=== PATIENT | female | born 1960 | race Caucasian/White ===

== ENCOUNTER → 2022-05-15 | Outpatient (CLI) | payer BC ==
[2022-05-15 13:46] LABS: INR 0.9 (<1.2); Partial Thromboplastin Time 24.5 sec (22.0-30.0); Prothrombin Time 9.7 sec (9.0-12.0)
[2022-05-15 18:21] LABS: Appearance,Urine Cloudy (Clear); Bilirubin,Urine Negative (Negative); Blood,Urine Negative (Negative); Color,Urine Yellow (Yellow); Ketones,Urine Negative (Negative); Nitrite,Urine Positive (Negative); PH, Urine 7.5 (5.0-8.0); Specific Gravity,Urine 1.013 (1.001-1.030)
[2022-05-15 19:05] LABS: Bacteria,Urine 4+ /HPF (None Seen)
[2022-05-15 19:10] LABS: HCT 39.7 % (37.2-46.3); HGB 12.9 g/dL (12.0-15.0); MCH 30.4 pg (27.0-32.0); MCHC 32.5 g/dL (32.0-37.0); MCV 93.4 fL (80.0-97.0); Mean Platelet Volume 10.8 fL (9.5-12.2); NRBC Per 100 WBC 0 /100 WBCS (0.0-0.0); Platelet Count 315 X 10*3/uL (140-440); RBC 4.25 X 10*6/uL (4.10-5.20)
[2022-05-15 19:25] LABS: ALT 22 U/L (8-44); AST 23 U/L (13-35); African American GFR (CKD) 109.6 (60.0-200.0); Albumin 4.4 g/dL (3.8-4.9); Albumin/Globulin Ratio 1.76 (1.60-3.17); Alkaline Phosphatase 107 U/L (41-126); BUN/Creat Ratio 11.95 Ratio (12.00-20.00); Blood Urea Nitrogen 8.3 mg/dL (9.0-27.0); Calcium 9.5 mg/dL (8.7-10.3); Carbon Dioxide 27.4 mmol/L (20.0-27.5); Chloride 105 mmol/L (96-109); Globulin 2.5 g/dL (1.6-3.3); Glucose 93 mg/dL (70-110); Non-African American GFR(CKD) 94.6 (60.0-200.0); Potassium 4.5 mmol/L (3.5-5.5); Sodium 142 mmol/L (135-145); Total Bilirubin <0.15 mg/dL (0.30-1.20); Total Protein 6.9 g/dL (6.2-8.2)
== END | disposition home or self-care (01) ==
LOC: LABPAT 11:49
PROVIDERS: ATTEND Orthopaedic Surgery
DX: Z01.812 Encounter for preprocedural laboratory examination (principal); Z01.818 Encounter for other preprocedural examination; M16.12 Unilateral primary osteoarthritis, left hip
CPT/HCPCS: 80053; 81001; 85027; 85610; 85730; 87070; 93005

== ENCOUNTER 2022-05-24 06:35 | Day surgery (SDC) | payer BC ==
[~2022-05-24 06:35] MED LIST: ACETAMINOPHEN TAB 500 MG TAB PO PRN; DEXAMETHASONE SOD PHOSPHATE 10 MG/ML 1 ML VIAL IV PRN; DEXAMETHASONE SOD PHOSPHATE 4 MG/ML 1 ML VIAL IV ONE; DOCUSATE 100 MG CAP PO PRN; FAMOTIDINE 20 MG/2 ML VIAL IVP PRN; KETOROLAC 15 MG/ML 1 ML VIAL IVP PRN; LIDOCAINE 1% (10MG/ML) FOR IV START INTRADERMA PRN; MIDAZOLAM 2 MG/2 ML VIAL IV PRN; ONDANSETRON 4 MG/2 ML VIAL IVP ONE; ONDANSETRON 4 MG/2 ML VIAL IVP PRN; ROPIVACAINE 246.25 MG, EPINEPHrine 0.5 MG, KETOROLAC (30 mg/mL) 30 MG, cloNIDine HCL/PF... MISCELLANE PRN; TRANEXAMIC ACID IN NACL,ISO-OS 1,000 MG in SALINE 1 100ML.BAG IVPB PRN; oxyCODONE ER 10 MG TAB.ER.12H PO PRN
[2022-05-24] MEDS: LACTATED RINGERS 1,000 ML IV SCH ×3 (07:17→23:06)
[2022-05-24] MEDS ORDERED: fentaNYL (PF) 50 MCG/ML 2 ML AMP IV ONE (07:41)
[2022-05-24] MEDS ORDERED: MIDAZOLAM 2 MG/2 ML VIAL IV ONE (07:41)
[2022-05-24] MEDS ORDERED: PROPOFOL 10 MG/ML 20 ML VIAL IV ONE (07:54)
[2022-05-24] MEDS ORDERED: SUCCINYLCHOLINE CHLORIDE 200 MG/10 ML VIAL IV ONE (07:54)
[2022-05-24] MEDS ORDERED: SODIUM CHLORIDE 0.9% (PF) 10 ML VIAL ONE (07:54)
[2022-05-24] MEDS ORDERED: LIDOCAINE 2% INJ 20 MG/ML (2 ML VIAL) ONE (07:54)
[2022-05-24] MEDS ORDERED: KETAMINE 10 MG/ML 20 ML VIAL ONE (07:54)
[2022-05-24] MEDS ORDERED: ROPIVACAINE 5 MG/ML 30 ML VIAL ONE (07:54)
[2022-05-24] MEDS ORDERED: fentaNYL (PF) 50 MCG/ML 2 ML AMP ONE (07:54)
[2022-05-24] MEDS ORDERED: GLYCOPYRROLATE 0.2 MG/ML 2 ML VIAL ONE (07:54)
[2022-05-24] MEDS ORDERED: NEOSTIGMINE 1 MG/ML 10 ML VIAL ONE (07:54)
[2022-05-24] MEDS ORDERED: ROCURONIUM 10 MG/ML (5 ML VIAL) IV ONE (07:54)
[2022-05-24] MEDS ORDERED: ePHEDrine 50 MG/ML 1 ML VIAL ONE (07:54)
[2022-05-24] MEDS ORDERED: MIDAZOLAM 2 MG/2 ML VIAL ONE (07:54)
[2022-05-24] MEDS ORDERED: TRANEXAMIC ACID IN NACL,ISO-OS 1,000 MG/100 ML BAG ONE (07:54)
[2022-05-24] MEDS ORDERED: LACTATED RINGERS 1,000 ML IV ONE (09:31)
--- NOTE | 2022-05-24 10:09 | XR ---
Fluoroscopy INDICATION: Pain FINDINGS: Fluoroscopy time: 36 seconds. Images obtained: 10. IMPRESSIONS: 1. Documentation of fluoroscopy.
--- NOTE | 2022-05-24 10:10 | FL ---
Intraoperative/procedural fluoroscopic services were provided. Total fluoroscopy time is 36 seconds w ith a total of 0 submitted images to PACS. Please see the operative/procedural note for further detai ls.
--- NOTE | 2022-05-24 10:13 | P.ANPRN ---
Procedure Note - Anesthesia - Nerve Block Performed Left Erector Spinae Time Out Performed: Yes (07:40) Date of Procedure: 05/24/22 Procedure Start Time: :40 Procedure Stop Time: :46 Location of Patient: PreOp Indication: Acute Post-Operative Pain, Requested by Surgeon (Dr Cuadra) Sedation Type: Sedate with meaningful contact maintained Preparation: Sterile Prep Position: Prone Catheter: None Needle Types: Pajunk Needle Gauge: 21 Ultrasound used to visualize needle placement: Yes Ultrasound used to observe medication spread: Yes Injectate: 0.5% Ropivacaine (see comment for volume) (15cc +10cc PF Normal saline) Blood Aspirated: No Pain Paresthesia on Injection Noted: No Resistance on Injection: Normal Image Stored and Saved: Yes Events: Uneventful and Well Tolerated
--- NOTE | 2022-05-24 10:14 | P.OP ---
Date of Procedure: 05/24/22 Preoperative Diagnosis: 1. 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 Prior lumbar spine fusion 3. Current every day cigarette smoker Postoperative Diagnosis: Same Procedure(s) Performed: Left direct anterior total hip arthroplasty Implants: 1. Shelby Trident II Acetabular Cup, Size #48 2. Shelby Insignia Size #3 Femoral Stem, Standard Offset 3. Dual Mobility OD 38 mm, ID 22.2 mm, +0 neck Anesthesia: GETA Surgeon: Ken Cuadra Childhood Teacher #1: Ellis Salter Estimated Blood Loss (ml): 200 IV fluids (ml): 1,200 Pathology: other (Left hip to pathology to rule out avascular necrosis per my request) Condition: stable Disposition: PACU Indications for Procedure: The patient is a very pleasant 61-year-old female with a long-standing history of left hip and back pain. He was initially seen by an outside orthopedic surgeon and then referred to me by her primary care physician to evaluate her for a possible total hip replacement. Her x-rays in the office showed arthritis and possible avascular necrosis. She had exquisite groin pain that was reproduced with passive range of motion of her hip. She also had a prior lumbar spine fusion and had some radicular type pain in her leg. We had a long discussion on the source of her pain including both the hip and the back. Based on my evaluation and the patient's presenting complaints I think the majority of her pain is from her hip but she understands the possibility of referred pain from her back. We also discussed her smoking status. The patient has severe incapacitating pain and states that she is willing to go forward with a hip replacement. I recommended smoking cessation but the patient said she is unable to quit. She understands the slightly elevated risk of complications due to her smoking. I strongly encouraged her to quit smoking during the perioperative period. I had a long discussion with the patient in the office on the potential risks and complications of an elective total hip replacement through a direct anterior approach. Risks discussed include, but are certainly not limited to, risks from anesthesia, superficial infection requiring local wound care or antibiotics, deep diana-prosthetic joint infection and the treatment required to eradicate infection, intraoperative fracture, postoperative periprosthetic fracture, damage to local blood vessels or nerves particularly the lateral femoral cutaneous nerve, delayed wound healing requiring local wound care or possibly surgical debridement, hip dislocation, leg length discrepancy, soft tissue irritation around the total hip implant such as iliopsoas tendinitis or trochanteric bursitis, wear and osteolysis from the implants, squeaking or audible noises, groin pain, thigh pain, heterotopic ossification, stiffness, aseptic loosening of the implants, dissatisfaction with surgical outcome, need for revision surgery, DVT, PE, swelling of the operative extremity, acute coronary event, stroke, failure to thrive, and possibly loss of life or limb. The patient understands that while these are the most common complications after an elective hip replacement there are certainly other less common complications possible. They were given ample time to ask questions regarding the potential complications of a hip replacement. Following our discussion the patient provided their verbal and written consent to go forward with an elective total hip replacement. Operative Findings: Severe arthritis with complete cartilage loss from the femoral head. There was a delaminated piece of cartilage within the acetabulum as a loose body. There was marked synovitis of the hip joint and a large effusion. Description of Procedure: The patient was identified in the preoperative holding area and the correct hip was marked with my initials. I reviewed the procedure and consent with the patient. All of their questions were answered. The patient was then brought back into the operating room by anesthesia. While on the [facility] anesthesia was administered by the anesthesia team. Preoperative antibiotics and tranexamic acid were also given. After the patient was under anesthesia I examined their ankles to determine their preoperative leg length discrepancy. The skin over the anterior aspect of the hip was shaved to remove hair over the site of planned incision. Both feet and ankles were padded with webril and boots for the [place] were applied. The patient was then carefully transferred onto the [place] table. A perineal post was immediately placed. The arms were placed on arm holders and were well-padded. Both boots were secured to the spars on the [place] table. The patient was positioned so that the pelvis was centered over the post. Nonsterile drapes were applied. A timeout was performed identifying the correct patient, operative extremity, and procedure. At this point fluoroscopy was brought in to take preoperative images of the pelvis and operative hip. Using the standing AP pelvis from the office as a template, a comparable image was obtained with fluoroscopy. A metallic bar was used to create a bi-ischial line for use as a reference to leg length adjustments during the procedure. Global offset was also measured on both the operative and nonoperative leg. Fluoroscopy was then brought out and a pre-scrub using a chlorhexidine scrub brush was performed. The operative limb was then prepped and draped in the standard sterile fashion. An anterior longitudinal incision was made lateral and distal to the ASIS. The skin and subcutaneous tissues were incised sharply. The underlying tensor fascia was identified and incised in its midportion. The fascia was dissected free from the underlying muscle and the muscle belly was retracted. A blunt tipped cobra retractor was placed over the superior neck under the muscle fibers of the gluteus minimus. The deep enveloping fascia of the tensor was incised. The anterior leash of vessels were then identified and cauterized. The fascia between the rectus and the capsule was then incised and the pre-capsular fat was excised. A second Cobra was placed inferior to the neck. The interval between the rectus and iliocapsularis and the hip capsule was developed and a retractor was placed carefully over the anterior rim of the acetabulum. A T-shaped anterior capsulotomy was performed. The superior capsular leaflet was left in place in the inferior capsular flap was excised. The Cobra retractors were placed intracapsularly. We then made a femoral neck osteotomy according to preoperative and intraoperative templating and confirmed the level of the osteotomy using fluoroscopic imaging. The femoral head was removed, passed off to the back table, and sized. The superior capsular flap was excised. Retractors were placed circumferentially exposing the acetabulum. We then circumferentially debrided the acetabulum free of labrum and osteophytes. The pulvinar was removed to fully visualize the cotyloid fossa. We then sequentially reamed to achieve peripheral fit and excellent bleeding subchondral bone. The socket was thoroughly irrigated. The acetabular component was i mpacted into the appropriate position using fluoroscopy to guide version, inclination, and depth of insertion taking care to have a comparable image of the AP pelvis to the standing image taken in the office. An excellent press-fit was achieved and final position was confirmed using fluoroscopy. The press fit was augmented with bony cancellus dome screws. The liner was then impacted into the socket. Attention was then turned to the femur. The remnant dorsal lateral capsule was excised. The short external rotators were visible and protected. A bone hook was used to confirm appropriate translation of the trochanter away from the acetabulum. The leg was then extended and adducted and the bone hook was used to elevate the femur for broaching. A box osteotome and blunt tipped canal kristian nd was then utilized to gain access to the femoral canal. We then sequentially broached the femur in appropriate anteversion until excellent torsional stability was achieved. The neck cut was brought flush to the trial broach with a calcar planar. A trial neck and head were then placed onto the broach and the hip was atraumatically reduced under direct visualization. External rotation to 90 was performed to assess stability. Fluoroscopy was brought in. An AP and lateral fluoroscopic image of the proximal femur was obtained to assess position and fill of the trial broach. An AP of the pelvis was then obtained and matched to the preoperative image taken. A bi-ischial bar was then placed and measurements were taken to assess changes in length and offset. The hip was then carefully dislocated, the proximal femur was exposed, and the trial implants were removed. The wound and proximal femur was thoroughly irrigated using sterile saline and pulsatile lavage. The final femoral implant was dispensed and gently tapped into place generating an excellent press-fit. The trunnion was cleansed and the final head was tapped into place to engage the Foster taper. The acetabulum was irrigated and visualized to be free of debris. The hip was carefully reduced. Stability was checked clinically with external rotation to 90 and there was no evidence of instability. Final fluoroscopic images were taken. The wound was then thoroughly irrigated and soaked with a dilute Betadine rinse for 3 minutes. 3 L of sterile saline was irrigated through the wound using pulsatile lavage. Local anesthetic cocktail was injected into the soft tissues around the surgical field. A deep drain was placed. The wound was then closed in layers. A sterile dressing was placed over the surgical incision and drain site. The drapes were taken down and the patient was carefully transferred off of the [place] table. Following removal of the boots the leg lengths felt acceptable. The patient was then taken to recovery room having tolerated the procedure well. Ellis Salter PA-C was required as a skilled wardrobe assistant for patient positioning, surgical exposure, retraction, placement of implants, and closure of the surgical wound. PLAN: The patient can weight-bear as tolerated on the operative extremity. 2 doses of postoperative antibiotics. DVT prophylaxis with aspirin 81 mg twice a day based on preoperative risk stratification. Physical therapy for gait training. Discontinue drain postoperative day #1 if output is less than 100 mL per shift.
[2022-05-24] MEDS ORDERED: ONDANSETRON 4 MG/2 ML VIAL IVP PRN (10:15)
[2022-05-24] MEDS ORDERED: HYDROmorphone 1 MG/ML 1 ML SYRINGE IVP PRN (10:15)
[2022-05-24] MEDS ORDERED: HYDROmorphone 0.5 MG/0.5 ML SYRINGE IVP PRN ×2 (10:15)
[2022-05-24] MEDS ORDERED: NALOXONE 0.4 MG/ML 1 ML VIAL IV PRN (10:15)
[2022-05-24] MEDS: HYDROmorphone 0.5 MG/0.5 ML SYRINGE IVP PRN ×2 (10:35→10:52)
[2022-05-24] MEDS: HYDROcodone/APAP 5-325MG 1 EACH TAB PO PRN ×2 (13:17→21:34)
[2022-05-24] MEDS ORDERED: SENNOSIDES-DOCUSATE SODIUM 1 EACH TAB PO SCH (21:00)
[2022-05-24] MEDS: ASPIRIN 81 MG PO SCH (21:35)
[2022-05-25 03:47] VITALS: RESP 16
[2022-05-25] MEDS: LACTATED RINGERS 1,000 ML IV SCH ×3 (07:01→10:24)
[2022-05-25] MEDS: HYDROcodone/APAP 5-325MG 1 EACH TAB PO PRN ×2 (07:08→12:11)
[2022-05-25] MEDS: ASPIRIN 81 MG PO SCH (07:09)
[2022-05-25 08:12] VITALS: BP 169/73; PULSE 74; TEMP 99.1
--- NOTE | 2022-05-25 08:13 | P.DS ---
Providers Expected date of discharge: 05/25/22 Attending physician: Ken Cuadra Consults: 05/24/22 10:15 Consult Physician Routine Consulting Provider: Stevan Alicia Reason/Comments: medical management Do you want consulting provider notified?: Yes Primary care physician: Stevan [facility]de [facility] Course: This is a 61-year-old female with known history of degenerative arthritis of the right hip. The patient presents for evaluation. After discussion and consideration patient elects to proceed with direct anterior right total hip arthroplasty. The patient is seen preoperatively by Dr. Alicia and cleared for surgery. Patient is admitted to [facility] on 05/24/22 for direct anterior right total hip arthroplasty. The procedures performed without complication or sequelae. The patient is doing well postoperatively. Labs and vital signs are stable on day of discharge. Patient is examined bedside this morning with Dr. Cuadra. She states the pain in her right hip is well-controlled. She is ambulating with a walker with minimal assistance. She overall feels well. On examination, the patient is sitting up in bed in no apparent distress. She is alert and oriented 3. On inspection of her right hip, there is a clean, dry, intact OpSite dressing in place with no bleeding or drainage through the dressing. There is mild swelling of the thigh, the thigh soft and compressible. Motor and sensory function is intact of the right lower extremity. Femoral nerve function intact. Right lower extremity were well perfused. Calf is soft and nontender. Patient is discharged to home with home health services in good condition, pending medical clearance. Please see med rec for accurate list of discharge medications. Patient was instructed to follow-up with Dr. Cuadra in the office in 2 weeks. Plan - Discharge Summary Discharge Rx Participant: No New Discharge Prescriptions: New Aspirin 81 mg PO BID 30 Days #60 tab Omeprazole 40 mg PO DAILY 30 Days #30 cap Docusate [Colace] 100 mg PO BID #60 capsule HYDROcodone/APAP 5-325MG [[place] 5-325] 1 - 2 tab PO Q6HR PRN 7 Days #32 tab PRN Reason: Pain Diclofenac Sodium [Voltaren] 75 mg PO BID 30 Days #60 tab No Action Ibuprofen [Motrin] 800 mg PO Q8H PRN PRN Reason: Pain Atorvastatin [Lipitor] 10 mg PO DAILY Discharge Medication List Atorvastatin [Lipitor] 10 mg PO DAILY 05/22/22 [History] Ibuprofen [Motrin] 800 mg PO Q8H PRN 05/22/22 [History] Aspirin 81 mg PO BID 30 Days #60 tab 05/25/22 [Rx] Diclofenac Sodium [Voltaren] 75 mg PO BID 30 Days #60 tab 05/25/22 [Rx] Docusate [Colace] 100 mg PO BID #60 capsule 05/25/22 [Rx] HYDROcodone/APAP 5-325MG [[place] 5-325] 1 - 2 tab PO Q6HR PRN 7 Days #32 tab 05/25/22 [Rx] Omeprazole 40 mg PO DAILY 30 Days #30 cap 05/25/22 [Rx] Follow up Appointment(s)/Referral(s): Ken Cuadra MD [Medical Doctor] - 2 Weeks Activity/Diet/Wound Care/Special Instructions: Weight bear to tolerance on operative hip with a walker. Keep operative dressing intact until follow-up appointment in the office. Call the office if dressing becomes saturated or falls off. May shower over dressing. Take pain medications as needed. Take aspirin 81mg BID x 4 weeks for blood clot prevention. Follow-up with Dr. Cuadra in the office in two weeks. Call the office with any questions or concerns, Discharge Disposition: HOME WITH HOME HEALTH SERVICES
[2022-05-25] MEDS ORDERED: ATORVASTATIN 10 MG TAB PO SCH (09:00)
[2022-05-25 10:36] LABS: Basophils # (A) 0.03 X 10*3/uL (0.00-0.10); Basophils % (A) 0.2 %; Eosinophils # (A) 0.01 X 10*3/uL (0.04-0.35); Eosinophils % (A) 0.1 %; HGB 10.3 g/dL (12.0-15.0); Immature Grans, Automated 0.4 %; Lymphocytes # (A) 2.26 X 10*3/uL (0.90-5.00); Lymphocytes % (A) 14.2 %; MCH 30.7 pg (27.0-32.0); MCHC 32.2 g/dL (32.0-37.0); MCV 95.5 fL (80.0-97.0); Mean Platelet Volume 11.4 fL (9.5-12.2); Monocytes # (A) 1.25 X 10*3/uL (0.20-1.00); Monocytes % (A) 7.9 %; NRBC Per 100 WBC 0 /100 WBCS (0.0-0.0); Neutrophils # (A) 12.27 X 10*3/uL (1.80-7.70); Neutrophils % (A) 77.2 %; Platelet Count 297 X 10*3/uL (140-440); RBC 3.35 X 10*6/uL (4.10-5.20); RDW 14.4 % (11.5-14.5); WBC 15.89 X 10*3/uL (4.50-10.00)
--- NOTE | 2022-05-25 11:56 | P.CONS ---
History of Present Illness - Reason for Consult Consult date: 05/24/22 Medical management Requesting physician: Ken Cuadra - Chief Complaint Hips pain - History of Present Illness This is a pleasant 61-year-old patient of Dr. Nogueira. Chronic stable medical conditions include osteoarthritis, hyperlipidemia, nicotine dependence. Patient underwent left total hip arthroplasty. Able to get to the bathroom with a walker. Significant pain at the operative site. No nausea vomiting. Did tolerate her breakfast. Eating is stable. No chest pain. No dizziness or lightheadedness. Sitting at the edge of the bed. Keen to go home today. Review of systems: GEN.: None EYES: None HEENT: None NECK: None RESPIRATORY: None CARDIOVASCULAR: None GASTROINTESTINAL: None GENITOURINARY: None MUSCULOSKELETAL: Joint pains LYMPHATICS: None HEMATOLOGICAL: None PSYCHIATRY: None NEUROLOGICAL: None Past medical history to include: Osteoarthritis, hyperlipidemia, nicotine dependence Social history: . No alcohol. Smokes a pack a day for close to 40 years Physical examination: VITAL SIGNS: 99.1, 74, 16, 169.73, 96% room air. Blood pressure previously 135/70. GENERAL: BMI 29.8, sitting of the edge of the bed, awake, I discomfort EYES: Pupils equal. Conjunctiva normal. HEENT: External appearance of nose and ears normal, oral cavity grossly normal. NECK: JVD not raised; masses not palpable. HEART: First and second heart sounds are normal; no edema. LUNGS: Respiratory rate normal; clear to auscultation. ABDOMEN: Soft, nontender, liver spleen not palpable, no masses palpable. PSYCH: [Alert and oriented x3; mood and affect slightly anxiety MUSCULOSKELETAL:No Clubbing/cyanosis;muscles-grossly intact, evidence of OA. Dressing over the left hip incision site NEUROLOGICAL: Cranial nerves grossly intact; no facial asymmetry, power and sensation grossly intact. LYMPHATICS: No lymph nodes palpable in the axilla and neck INVESTIGATIONS, reviewed in the clinical context: WBC 15.8 hemoglobin 10.3 platelets 297 Previous labs: Hemoglobin 12.9 on May 15 Assessment and plan: -Left total hip arthroplasty Aspirin for DVT prophylaxis, pain control -Primary osteoarthritis Pain control -Hyperlipidemia Lipitor -Chronic nicotine dependence, cigarette smoker Advised against smoking. Nicotine patch. -Acute postprocedure anemia as expected from surgery Add ferrous sulfate Add ferrous sulfate. Nicotine patch. Resume home medications. Care was discussed with the patient. Questions answered. If discharged to follow-up with her PCP. Thank you Dr. Cuadra -Leukocytosis likely reactive from surgery. No clinical evidence of infection. Past Medical History Past Medical History: Hyperlipidemia Additional Past Medical History / Comment(s): left hip pain, arthritis hips, hands. back and shoulders. History of Any Multi-Drug Resistant Organisms: None Reported Past Surgical History: Appendectomy, Tonsillectomy Additional Past Surgical History / Comment(s): back surgery with a cage. rt carpal tunnel repair. ablation Past Anesthesia/Blood Transfusion Reactions: No Reported Reaction Additional Past Anesthesia/Blood Transfusion Reaction / Comm: no blood transfusion hx Smoking Status: Current every day smoker - Past Family History Mother Additional Family Medical History / Comment(s): abdominal surgery with mesh Father Family Medical History: Coronary Artery Disease (CAD) Additional Family Medical History / Comment(s): gout Sister(s) Family Medical History: Deep Vein Thrombosis (DVT) Medications and Allergies Home Medications Medication Instructions Recorded Confirmed Type Atorvastatin [Lipitor] 10 mg PO DAILY 05/22/22 05/24/22 History Aspirin 81 mg PO BID 30 Days #60 tab 05/25/22 Rx Diclofenac Sodium [Voltaren] 75 mg PO BID 30 Days #60 tab 05/25/22 Rx Docusate [Colace] 100 mg PO BID #60 capsule 05/25/22 Rx HYDROcodone/APAP 5-325MG [[place] 1 - 2 tab PO Q6HR PRN 7 Days #32 05/25/22 Rx 5-325] tab Omeprazole 40 mg PO DAILY 30 Days #30 cap 05/25/22 Rx Allergies Allergy/AdvReac Type Severity Reaction Status Date / Time No Known Allergies Allergy Verified 05/24/22 06:57 Physical Exam Vitals: Vital Signs Temp Pulse Pulse Resp BP Pulse Ox 05/24/22 14:00 97.6 F 68 14 120/67 94 L 05/24/22 11:10 77 16 134/59 96 05/24/22 10:53 74 16 148/67 95 05/24/22 10:40 68 16 153/58 93 L 05/24/22 10:25 70 16 139/57 99 05/24/22 10:12 97.8 F 90 16 149/70 98 05/24/22 07:45 64 16 167/74 99 05/24/22 07:09 97.4 F L 54 L 16 175/74 100 Intake and Output 05/24/22 05/24/22 05/24/22 06:59 14:59 22:59 Intake Total 1600 Output Total 200 Balance 1400 Intake: IV 1600 Output: Estimated Blood Loss 200 Other: Weight 74 kg Results CBC & Chem 7: 05/25/22 07:06
[2022-05-25] MEDS ORDERED: NICOTINE 21MG/24HR PATCH TRANSDERM SCH (12:00)
== END 2022-05-25 13:24 | disposition home health service (06) ==
LOC: OR 06:35 → 4SSUR 10:12 → OR 05-25 13:24
PROVIDERS: ATTEND Orthopaedic Surgery
DX: M16.12 Unilateral primary osteoarthritis, left hip (principal); G89.18 Other acute postprocedural pain; I10 Essential (primary) hypertension; E78.5 Hyperlipidemia, unspecified; F17.210 Nicotine dependence, cigarettes, uncomplicated; D64.9 Anemia, unspecified; D72.829 Elevated white blood cell count, unspecified; Z79.1 Long term (current) use of non-steroidal anti-inflammatories (NSAID); Z79.82 Long term (current) use of aspirin; Z82.49 Family history of ischemic heart disease and other diseases of the circulatory system; Z96.1 Presence of intraocular lens
CPT/HCPCS: 97161; 64999; 86900; 86901; 85025; 86850; 88300; 73501; 27130; C1776; J2250; J0171; J1100; J0690; J2405; J3010; J1885 ×2; J2795; J0735; J1170

== ENCOUNTER → 2022-12-08 | Outpatient (CLI) | payer BC ==
--- NOTE | 2022-12-08 17:27 | MR ---
EXAMINATION TYPE: MR lumbar spine wo/w con DATE OF EXAM: 12/08/2022 5:11 PM COMPARISON: NONE HISTORY: Low back pain that radiates down both legs, mostly left. CONTRAST: The patient was injected with 7 mL intravenous Gadavist gadolinium contrast. Multiplanar, MultiSpin echo imaging of the lumbar spine was performed. L1-L2: Normal disc appearance without desiccation. No herniation, protrusion or disc bulging. No ca nal stenosis is present. Foramina are patent bilaterally. L2-L3: Mild decreased signal ossified compatible degenerative disc disease. Mild posterior disc bulge without evidence of herniation, protrusion or central stenosis. Foramina are patent bilaterally. L3-L4: Mild decreased signal ossified compatible degenerative disc disease. Posterior disc bulge with effacement of the ventral thecal sac. There is constriction of the thecal sac with borderline to mil d central stenosis. There may be bilateral lateral recess stenosis. Mild bilateral foraminal encroach ment left greater than right. L4-L5: Moderate disc desiccation. Grade 1 anterolisthesis of L4 and L5 measuring 4.5 mm. There is sev ere facet joint arthropathy without spondylolysis. There is constriction of the thecal sac at this le josey with moderate central stenosis. Hypertrophy ligamentum flavum seen. L5-S1: Postoperative changes of decompressive laminectomy. Pedicular screws and intervertebral body s pacer are in place. Alignment is near-anatomic. No evidence for recurrent or residual disease. No pat hologic enhancement identified. Lumbar segments are intact. No paraspinal masses are identified. Conus medullaris has a normal cassie earance. No pathologic enhancement seen. IMPRESSION: 1. Multilevel degenerative disc disease. 2. Borderline to mild central stenosis at L3-4 as outlined above. 3. Grade 1 anterolisthesis L4 and L5 with distortion of the thecal sac and eyja-ta-seuhblyu central s tenosis. 4. Postoperative change at L5-S1 with normal postoperative alignment and no evidence for recurrent di sease.
== END | disposition home or self-care (01) ==
LOC: RADMRIMAIN 16:15
PROVIDERS: ATTEND Orthopaedic Surgery Orthopaedic Surgery of the Spine
DX: M43.16 Spondylolisthesis, lumbar region (principal); M47.26 Other spondylosis with radiculopathy, lumbar region; M51.16 Intervertebral disc disorders with radiculopathy, lumbar region; M99.73 Connective tissue and disc stenosis of intervertebral foramina of lumbar region
CPT/HCPCS: 72158; A9585

== ENCOUNTER → 2023-12-03 | Outpatient (CLI) | payer BC ==
--- NOTE | 2023-12-03 12:58 | XR ---
EXAMINATION TYPE: XR chest 2V DATE OF EXAM: 12/03/2023 COMPARISON: None HISTORY: 62-year-old female Z01.818 preoperative for spine surgery TECHNIQUE: Frontal and lateral FINDINGS: Heart mildly enlarged. Mild hyperinflation. Aorta and pulmonary vasculature are within normal limits. No consolidation or pleural effusion. IMPRESSION: Mild cardiomegaly. Hyperinflation may relate to depth of inspiration or underlying emphysema. Clinica lly correlate. No acute process seen.
[2023-12-03 13:13] LABS: INR 0.9 (<1.2); Partial Thromboplastin Time 25.2 sec (22.0-30.0); Prothrombin Time 10.3 sec (10.0-12.5)
[2023-12-03 15:43] LABS: Basophils # (A) 0.06 X 10*3/uL (0.00-0.10); Basophils % (A) 0.7 %; Eosinophils # (A) 0.24 X 10*3/uL (0.04-0.35); Eosinophils % (A) 2.7 %; HCT 41.4 % (37.2-46.3); HGB 13.3 g/dL (12.0-15.0); Lymphocytes # (A) 2.55 X 10*3/uL (0.90-5.00); Lymphocytes % (A) 28.4 %; MCH 30.8 pg (27.0-32.0); MCHC 32.1 g/dL (32.0-37.0); MCV 95.8 FL (80.0-97.0); Mean Platelet Volume 11.2 FL (9.5-12.2); Monocytes % (A) 5.6 %; NRBC Per 100 WBC 0 X 10*3/uL (0.00-0.01); Neutrophils % (A) 62.4 %; Platelet Count 324 X 10*3/uL (140-440); RBC 4.32 X 10*6/uL (4.10-5.20); RDW 13.4 % (11.5-14.5); WBC 8.97 X 10*3/uL (4.50-10.00)
[2023-12-03 16:00] LABS: BUN/Creat Ratio 12.71 Ratio (12.00-20.00); Blood Urea Nitrogen 8.9 mg/dL (9.0-27.0); Calcium 9.5 mg/dL (8.7-10.3); Carbon Dioxide 26.1 mmol/L (21.6-31.8); Chloride 105 mmol/L (96-109); Glucose 110 mg/dL (70-110); Potassium 4.4 mmol/L (3.5-5.5); Sodium 143 mmol/L (135-145)
[2023-12-03 17:31] LABS: Appearance,Urine Clear (Clear); Bilirubin,Urine Negative (Negative); Blood,Urine Negative (Negative); Color,Urine Yellow (Yellow); Ketones,Urine Negative (Negative); Nitrite,Urine Negative (Negative); Specific Gravity,Urine 1.006 (1.001-1.030); Urobilinogen,Urine 0.2 E.U./DL
[2023-12-03 17:43] LABS: Bacteria,Urine None Seen (None Seen)
== END | disposition home or self-care (01) ==
LOC: LABPAT 11:25
PROVIDERS: ATTEND Orthopaedic Surgery Orthopaedic Surgery of the Spine
DX: Z01.818 Encounter for other preprocedural examination (principal); Z22.322 Carrier or suspected carrier of Methicillin resistant Staphylococcus aureus; I51.7 Cardiomegaly; J98.4 Other disorders of lung
CPT/HCPCS: 71046; 80048; 81001; 85025; 85610; 85730; 86850; 86900; 86901; 87070; 93005

== ENCOUNTER 2023-12-12 10:05 | Observation (INO) | payer BC ==
[2023-12-07 15:02] VITALS: BMI 28.3
[~2023-12-12 10:05] MED LIST changes: -ACETAMINOPHEN TAB 500 MG TAB PO PRN; -DEXAMETHASONE SOD PHOSPHATE 10 MG/ML 1 ML VIAL IV PRN; -DEXAMETHASONE SOD PHOSPHATE 4 MG/ML 1 ML VIAL IV ONE; -DOCUSATE 100 MG CAP PO PRN; -FAMOTIDINE 20 MG/2 ML VIAL IVP PRN; +HYDROmorphone 0.5 MG/0.5 ML SYRINGE IVP PRN; -KETOROLAC 15 MG/ML 1 ML VIAL IVP PRN; -MIDAZOLAM 2 MG/2 ML VIAL IV PRN; -ONDANSETRON 4 MG/2 ML VIAL IVP ONE; -ONDANSETRON 4 MG/2 ML VIAL IVP PRN; -ROPIVACAINE 246.25 MG, EPINEPHrine 0.5 MG, KETOROLAC (30 mg/mL) 30 MG, cloNIDine HCL/PF... MISCELLANE PRN; -TRANEXAMIC ACID IN NACL,ISO-OS 1,000 MG in SALINE 1 100ML.BAG IVPB PRN; +ceFAZolin 1,000 MG in SODIUM CHLORIDE 0.9% IRRIGATIO 1,000 ML IRRIGATION PRN; -oxyCODONE ER 10 MG TAB.ER.12H PO PRN
[2023-12-12] MEDS: LACTATED RINGERS 1,000 ML IV SCH (10:33)
[2023-12-12] MEDS: ONDANSETRON 4 MG/2 ML VIAL IVP ONE (10:46)
[2023-12-12] MEDS ORDERED: ROCURONIUM 10 MG/ML (5 ML VIAL) IV ONE (12:35)
[2023-12-12] MEDS ORDERED: TRANEXAMIC 1,000 MG/100ML-NACL PREMIX BAG ONE (12:35)
[2023-12-12] MEDS ORDERED: LIDOCAINE 1% INJ 10MG/ML (20 ML MDV) ONE (12:35)
[2023-12-12] MEDS ORDERED: KETAMINE HCL IN 0.9 % NACL 50 MG/5 ML SYRINGE ONE (12:35)
[2023-12-12] MEDS ORDERED: PROPOFOL 10 MG/ML 20 ML VIAL IV ONE (12:35)
[2023-12-12] MEDS ORDERED: HYDROmorphone (PF) 1 MG/ML ONE (12:35)
[2023-12-12] MEDS ORDERED: fentaNYL (PF) 50 MCG/ML 2 ML AMP ONE (12:35)
[2023-12-12] MEDS ORDERED: NEOSTIGMINE 1 MG/ML 10 ML VIAL ONE (12:35)
[2023-12-12] MEDS ORDERED: MIDAZOLAM 2 MG/2 ML VIAL ONE (12:35)
[2023-12-12] MEDS ORDERED: GLYCOPYRROLATE 0.2 MG/ML 2 ML VIAL ONE (12:35)
[2023-12-12] MEDS ORDERED: PHENYLEPHRINE-0.9% NACL SYG 1,000 MCG/10 ML SYRINGE ONE (12:35)
[2023-12-12] MEDS ORDERED: SUCCINYLCHOLINE CHLORIDE 200 MG/10 ML VIAL IV ONE (12:35)
[2023-12-12] MEDS: ceFAZolin 1,000 MG in SODIUM CHLORIDE 0.9% IRRIGATIO 1,000 ML IRRIGATION PRN (12:40)
[2023-12-12] MEDS: LIDOCAINE 2% INJ 20 MG/ML SQ ONE ×2 (13:01→13:11)
[2023-12-12] MEDS: BUPIVACAINE (PF) 0.25% 30 ML VIAL SQ ONE ×2 (13:01→13:11)
[2023-12-12] MEDS: THROMBIN (BOVINE) 5,000 UNIT VIAL MISCELLANE ONE (13:11)
[2023-12-12] MEDS: LACTATED RINGERS 1,000 ML IV ONE (14:36)
[2023-12-12] MEDS ORDERED: BENZOCAINE/MENTHOL LOZENG 1 EACH LOZENGE MUCOUS MEM PRN (16:26)
[2023-12-12] MEDS ORDERED: HYDROmorphone 1 MG/ML 1 ML SYRINGE IVP PRN (16:26)
[2023-12-12] MEDS ORDERED: bisacodyL 10 MG SUPP RECTAL PRN (16:27)
[2023-12-12] MEDS ORDERED: ONDANSETRON 4 MG/2 ML VIAL IVP PRN (16:27)
[2023-12-12] MEDS ORDERED: ACETAMINOPHEN TAB 325 MG TAB PO PRN (16:27)
[2023-12-12] MEDS ORDERED: traMADol 50 MG TAB PO PRN (16:30)
[2023-12-12] MEDS: HYDROmorphone 0.5 MG/0.5 ML SYRINGE IVP ONE ×3 (16:50→17:37)
--- NOTE | 2023-12-12 16:50 | P.OP ---
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, history of prior decompression fusion L5-S1, fracture hardware S1, retained hardware at L5-S1, lower extremity radiculopathy Postoperative Diagnosis: Same with findings of solid fusion at L5-S1 Procedure: Removal of deep hardware L5-S1, explorration and evaluation of fusion L5-S1 with findings of solid fusion, laminectomy decompression with wide bilateral foraminotomies and partial facetectomy L4-5, discectomy for decompression L4-5 beyond the scope of discectomy for fusion, Posterior lateral decompression and fusion L4-5 Transforaminal lumbar interbody fusion L4-5 for 360 degree fusion Use of CT guidance navigation intraoperatively for placement of hardware and image evaluation Surgeon: Dr. Coombs Pen Or Pencil Assembly Machine Operator: Cj CROSS who is present throughout the entire the case persistence during positioning, dissection, exposure, visualization, and all crucial elements of the case as well as closure. Anesthesia: General anesthesia Estimated blood loss: Approximately 150 cc Complications: None apparent Components implanted: [place] K2 M [place] cannulated pedicle screw system with 6.5 x 45 mm screws and a [place] interbody cage with rods and DBX bone strips to supplement local autogenous bone graft and bone marrow aspirate. We removed screws L5 and S1 vertebrae. The screws from L5 were evaluated and found to be in total. The rods were in total. The left S1 screw was in total. The right S1 screw that was removed had been fractured chronically. We did not remove the fracture fragment within S1 vertebrae. Disposition: To recovery room in good stable condition. OPERATIVE INDICATIONS OPERATIVE SUMMARY The patient is a very pleasant 62-year-old female who has been having worsening pain in her low back over the past year. She been having worsening symptoms over the past several months and was found to have severe stenosis with spondylolisthesis and dynamic instability at L4-5. She had had a prior decompression and fusion at L5-S1. It appeared to be solid with screws intact at L4 but one of the screws at S1 had been fractured. We discussed various treatment options. She had been through extensive conservative treatment however it failed conservative management and exhausted conservative care. We discussed possibly of surgical intervention to remove the old hardware and extend the fusion to the new listhesis at L4-5 with severe stenosis at that level. After discussing all the risks, patient alternatives and benefits at length, the patient elected to proceed with surgical intervention, signed informed consent, and presented for their procedure. The patient was seen and examined in the preoperative holding area and the surgical site was marked. The patient was given antibiotics and brought to the operating room. The patient was sedated and intubated by anesthesia in standard fashion. The patient was positioned on to the operating room table in a prone position on the appropriate frame which was well-padded and well molded. We were careful to pad any bony prominences and pressure points. We were careful to maintain the patient's cervical spine and good neutral alignment and position throughout. The patient was prepped and draped in a normal standard fashion. An appropriate timeout and keystone protocol performed. We were able to proceed with the surgery. The local wound area was infiltrated with local anesthetic. An incision was made at the midline longitudinally over the appropriate levels utilizing the prior incision site and extending however L4-S1. Dissection was taken down subcutaneously to the level of the fascia which was split midline. Dissection was taken over the lamina bilaterally over the facet joints at L4-5 and over the hardware from L4-S1 and to the transverse processes. There is significant bone formation particularly on the right side at L5-S1. It was bridging bone from facet joint facet joint over the transverse processes. There is no evidence of any motion at the area. I was easily able to identify the screw heads. We began to remove the hardware at L5 and S1. The S1 screw on the right was fractured and we left the remnant within the vertebral body and S1 as it was not prominent. All the other screws removed and evaluated and found to be in total. The johnny was checked and found to be in total. The pedicle holes were palpated at L5 and found to have good for ferguson and a good base. There was no evidence of motion on evaluation at the fusion of L5-S1. I was able to expose over the spinous process of L3 and L4. An intraoperative stoker erector for the CT navigation device was placed over the spinous process and mounted in place with good stability. Intraoperative x-ray was taken which showed a marker at the appropriate level. With the stoker erector intact we are then able to drape appropriately and then bring in the [employer] navigation system for the appropriate intraoperative spin for the CT navigation. The spin was completed and we are able to evaluate well the space from L4-S1. The hardware has been removed appropriately at L5 and S1. With the appropriate level positively confirmed, we were able to proceed with placement of the pedicle holes and screws at L4 with plans of utilizing the established holes at L5. The patient had all their twitches back. The wound was copiously irrigated and suctioned dry as had been done periodically throughout the case. Using the CT navigation system intraoperatively I was able to use the Jamshidi to establish starting hole and establish the hole at the pedicle bilaterally at L4. It was malleted in place and checked. A wire was placed into the vertebral body and the Jamshidi was able to removed. Wires were placed at the L5 pedicle screw holes as well. Intraoperative imaging showed good alignment and position of the wires and we are all to place screws at L4 bilaterally 6.5 x 45 mm in length in good alignment good position with excellent bony purchase. The screw holes at L5 were tapped with a 6 5 tap and new screw was placed bilaterally with good alignment good position excellent bony purchase at L5 as well. When the screws were inserted there were stimulated, and found to have no stimulation at 20 mA. I was able to turn my attention to the decompression. There is significant scar tissue formation over the area and meticulous dissection was taken at the L4-5 space. The facets were severely arthritic and large spurs had formed. I was able to get decompression with full facetectomy on the left side and wide foraminotomy and partial facetectomy on the right side. Decompression was performed with a combination of rongeurs, curettes, Kerrison rongeurs and a ball-tip feeler. All of the bone that was removed was stripped and morcellized for use as autogenous bone graft later in the case. I was able to obtain good central decompression as well as wide bilateral foraminal decompression. There is no evidence of dural tear or leak. Good hemostasis was maintained. The wound was irrigated and suctioned dry. I performed a complete facetectomy at the appropriate level on the most symptomatic side on the left. All bone that was removed was saved for local autogenous bone grafting. I was able to gain access to the disc space at the appropriate level/levels. Good hemostasis was maintained. I was able to protect the neurologic structures. A discectomy was performed. This provided further decompression. I was also able to perform complete discectomy and endplate preparation with a combination of pituitary curettes, rasps and scrapers. With the interbody space prepared, I was able to do appropriate sizing. The appropriate size cage was chosen. The wound was irrigated and suctioned dry. The interbody space was packed with local autogenous bone graft and a small portion of bone graft substitute, as was the cage itself. Protecting the soft tissue structures, I was able place the cage in good alignment and good position with good fit and fill. There is no evidence of extrusion of the graft material nor protrusion of the interbody device. The wound was irrigated and suctioned dry. With the hardware intact, intraoperative x-ray was again taken which showed good alignment and position of the hardware at the appropriate levels. We were then able to measure, contour and place the rods and appropriate hardware bilaterally. I was able to obtain some reduction of the listhesis with placement of the rods at L4-5. I was able to place capcrews, tighten them down, and torque them off appropriately. The sheared portion was counted and accounted for. With this intact I was able to place the local autogenous bone graft with additional bone graft enhancer as necessary into the posterior lateral gutters bilaterally. With the bone graft intact, a stable construct, and good decompression at the appropriate levels, we were able to proceed with closure. Good hemostasis was maintained. There is no evidence of dural tear or leak. The fascia was closed for a watertight closure. The subcutaneous tissue was closed over a superficial drain. The subcuticular tissue was closed with absorbable suture. The wound was cleaned and dried and dressed with the appropriate dressing. The drapes were broken down. The patient was gently rolled back onto their hospital bed being careful to maintain their cervical spine and good neutral alignment and position. They were woken up by anesthesia, extubated, and brought to the recovery room in good stable condition. The patient will be admitted to the hospital for appropriate postoperative care, medical management and monitoring. We will continue to follow them closely about the postoperative course.
[2023-12-12] MEDS: SODIUM CHLORIDE 0.9% 1,000 ML IV SCH (18:39)
[2023-12-12] MEDS: HYDROmorphone 0.5 MG/0.5 ML SYRINGE IVP PRN (21:45)
--- NOTE | 2023-12-12 22:00 | P.CONS ---
History of Present Illness - Reason for Consult Consult date: 12/12/23 Medical management Requesting physician: Palu Coombs - Chief Complaint Lumbar surgery - History of Present Illness This is a pleasant 62-year-old patient of Dr. Alicia. Chronic stable medical conditions include osteoarthritis, hyperlipidemia, nicotine dependence. Patient has had longstanding lower back problems. Now radiating down to the left leg. With some numbness. At baseline patient does walk with a limp. Patient underwent lumbar surgery by Dr. Coombs. Postprocedure laying in bed. Some pain present. Chronic stable medical conditions include hard of hearing, tinnitus, hyperlipidemia. Patient does have chronic congestion from allergies. Smoker. Review of systems: GEN.: Tired EYES: None HEENT: Near congestion e NECK: None RESPIRATORY: Intermittent cough CARDIOVASCULAR: None GASTROINTESTINAL: None GENITOURINARY: None MUSCULOSKELETAL: Joint pains LYMPHATICS: None HEMATOLOGICAL: None PSYCHIATRY: None NEUROLOGICAL: None Past medical history to include: Osteoarthritis, hyperlipidemia, nicotine dependence Social history: . No alcohol. Smokes a pack a day for 44 years Physical examination: VITAL SIGNS: 99, 59, 14, 151/72, 97% 2 L GENERAL: BMI 27.7. Laying in bed awake not in distress EYES: Pupils equal. Conjunctiva normal. HEENT: External appearance of nose and ears normal, oral cavity grossly normal. Decreased hearing NECK: JVD not raised; masses not palpable. HEART: First and second heart sounds are normal; no edema. LUNGS: Respiratory rate normal; decreased breath sounds. ABDOMEN: Soft, nontender, liver spleen not palpable, no masses palpable. PSYCH: [Alert and oriented x3; mood and affect slightly anxiety MUSCULOSKELETAL:No Clubbing/cyanosis;muscles-grossly intact, evidence of OA. Dressing over incision site NEUROLOGICAL: Cranial nerves grossly intact; no facial asymmetry, power and sensation grossly intact. LYMPHATICS: No lymph nodes palpable in the axilla and neck INVESTIGATIONS, reviewed in the clinical context: December 03, 2023: White count 8.9 hemoglobin 13.3 platelets 324 sodium 143 potassium 4.4 creatinine 0.7 EKG tracing personally reviewed by me-December 03, 2023: Normal sinus rhythm. Chest x-ray film personally reviewed by me-hyperinflation. Mild cardiomegaly. 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 Including laminectomy decompression, facetectomy, discectomy,. By Dr. Paul Coombs. Pain control -Primary osteoarthritis Pain control -Hyperlipidemia Lipitor -Chronic nicotine dependence, cigarette smoker Nicotine patch. -Emphysema secondary to smoking Albuterol as needed Care was discussed with the patient. Questions answered. Thank you Dr. Coombs Past Medical History Past Medical History: Hearing Disorder / Deafness, Hyperlipidemia Additional Past Medical History / Comment(s): left hip pain, arthritis hips, hands. back and shoulders. Tinnitis History of Any Multi-Drug Resistant Organisms: None Reported Past Surgical History: Appendectomy, Tonsillectomy Additional Past Surgical History / Comment(s): back surgery with a cage. rt carpal tunnel repair. Uterine ablation. Past Anesthesia/Blood Transfusion Reactions: No Reported Reaction Additional Past Anesthesia/Blood Transfusion Reaction / Comm: no blood transfusion hx Past Psychological History: No Psychological Hx Reported Smoking Status: Current every day smoker Past Alcohol Use History: None Reported Additional Past Alcohol Use History / Comment(s): 1 ppd since 18yrs old. Past Drug Use History: None Reported, Marijuana Additional Drug Use History / Comment(s): Smoke Marijuna "once and awahile." Instructed no Marijuana use 24 hours before procedure. - Past Family History Mother Additional Family Medical History / Comment(s): abdominal surgery with mesh Father Family Medical History: Coronary Artery Disease (CAD) Additional Family Medical History / Comment(s): gout Sister(s) Family Medical History: Cancer, Deep Vein Thrombosis (DVT) Additional Family Medical History / Comment(s): breast cancer Medications and Allergies Home Medications Medication Instructions Recorded Confirmed Type Atorvastatin [Lipitor] 20 mg PO QAM 05/22/22 12/12/23 History Ibuprophen (Unknown Dose) 1 dose PO Q8H PRN 12/07/23 12/12/23 History traMADol HCL 50 mg PO TID PRN 12/07/23 12/12/23 History Allergies Allergy/AdvReac Type Severity Reaction Status Date / Time No Known Allergies Allergy Verified 12/12/23 10:29 Physical Exam Vitals: Vital Signs Temp Pulse Pulse Resp BP BP Pulse Ox 12/12/23 19:34 99.0 F 59 L 14 151/72 97 12/12/23 18:59 66 16 12/12/23 18:28 97.8 F 66 16 179/79 92 L 12/12/23 18:06 147/66 97 12/12/23 18:02 92 L 12/12/23 17:57 143/63 96 12/12/23 17:54 97 12/12/23 17:51 97 12/12/23 17:45 79 10 L 149/68 96 12/12/23 17:35 74 20 164/60 96 12/12/23 17:29 87 16 197/80 96 12/12/23 17:14 83 13 186/83 98 12/12/23 17:04 74 18 160/70 95 12/12/23 16:52 81 18 155/70 96 12/12/23 16:33 97.5 F L 79 16 161/72 97 12/12/23 10:45 193/82 12/12/23 10:35 97.1 F L 67 18 98 Intake and Output 12/12/23 12/12/23 12/12/23 06:59 14:59 22:59 Intake Total 1751 100 Output Total 875 Balance 1751 -775 Intake: IV 1751 100 Output: Urine 725 Estimated Blood Loss 150 Other: Voiding Method Indwelling Catheter Weight 68.6 kg 68.6 kg
[2023-12-12] MEDS: NICOTINE 21MG/24HR PATCH TRANSDERM SCH (22:05)
[2023-12-13] MEDS: HYDROcodone/APAP 5-325MG 1 EACH TAB PO PRN (00:03)
--- NOTE | 2023-12-13 08:01 | P.PN ---
Progress Note - Text Progress Note Date: 12/13/23 Postoperative day #1 Patient is seen and examined today at bedside. The patient has some pain around the surgical site as expected. She has not yet been out of bed. She had some initial nausea postoperatively but that is resolved. She has not yet had anything to eat. The Aldana is intact. Pain is being controlled with medication. Physical Exam Afebrile with stable vital signs Abdomen is soft nontender. Chest has good excursion deep and space expiration The incision site is clean dry and intact. No erythema there is no purulence. The drain is intact without any significant drainage Extremities have not had neurologic change from prior to surgery. She has sustained dorsiflexion plantarflexion EHL intact. Calves and thighs were soft nontender without evidence of DVT. Assessment/Plan Postoperative day #1 status post open decompression and fusion L4-5 with extension of prior fusion from L5-S1 for her spondylolisthesis with spinal stenosis and lower extremity radiculopathy Patient is progressing as expected from the surgery. Her pain seems to be adequately controlled with the IV medications and hopefully she will be able to convert over to orals as she progresses. We will continue to increase the patient's mobilization with therapy. She has not yet been out of bed but she feels she will be okay to get out of bed with therapy today and wants to start to move. We will continue pain control with oral or IV medications. As she continues to progress hopefully she will be able to be discharged home in another couple of days. We'll continue to follow patient closely.
[2023-12-13 08:39] LABS: HCT 36.3 % (37.2-46.3); HGB 11.7 g/dL (12.0-15.0); MCH 30.3 pg (27.0-32.0); MCHC 32.2 g/dL (32.0-37.0); Mean Platelet Volume 10.9 FL (9.5-12.2); NRBC Per 100 WBC 0 X 10*3/uL (0.00-0.01); Platelet Count 265 X 10*3/uL (140-440); RBC 3.86 X 10*6/uL (4.10-5.20); RDW 13.7 % (11.5-14.5); WBC 11.57 X 10*3/uL (4.50-10.00)
[2023-12-13 08:40] LABS: Basophils # (A) 0.06 X 10*3/uL (0.00-0.10); Basophils % (A) 0.5 %; Eosinophils # (A) 0.09 X 10*3/uL (0.04-0.35); Eosinophils % (A) 0.8 %; Lymphocytes # (A) 3.12 X 10*3/uL (0.90-5.00); Monocytes # (A) 0.93 X 10*3/uL (0.20-1.00); Neutrophils # (A) 7.34 X 10*3/uL (1.80-7.70); Neutrophils % (A) 63.4 %
[2023-12-13] MEDS: ATORVASTATIN 20 MG TAB PO SCH (08:49)
[2023-12-13] MEDS: SENNOSIDES-DOCUSATE SODIUM 1 EACH TAB PO SCH (08:49)
[2023-12-13 09:10] LABS: BUN/Creat Ratio 10.25 Ratio (12.00-20.00); Blood Urea Nitrogen 8.2 mg/dL (9.0-27.0); Calcium 8.8 mg/dL (8.7-10.3); Carbon Dioxide 25.9 mmol/L (21.6-31.8); Chloride 106 mmol/L (96-109); Glucose 105 mg/dL (70-110); Potassium 4.2 mmol/L (3.5-5.5); Sodium 141 mmol/L (135-145)
[2023-12-13] MEDS: CYCLOBENZAPRINE 10 MG TAB PO PRN (09:42)
--- NOTE | 2023-12-13 14:43 | P.PN ---
Progress Note - Text Progress Note Date: 12/13/23 - Chief Complaint Lumbar surgery - History of Present Illness This is a pleasant 62-year-old patient of Dr. Alicia. Chronic stable medical conditions include osteoarthritis, hyperlipidemia, nicotine dependence. Patient has had longstanding lower back problems. Now radiating down to the left leg. With some numbness. At baseline patient does walk with a limp. Patient underwent lumbar surgery by Dr. Coombs. Postprocedure laying in bed. S ome pain present. Chronic stable medical conditions include hard of hearing, tinnitus, hyperlipidemia. Patient does have chronic congestion from allergies. Smoker. December 12: Pain present at operative site. Has a Hemovac in place. Poor appetite. Up in chair. Aldana catheter was discontinued. Active Medications Acetaminophen (Acetaminophen Tab 325 Mg Tab) 650 mg PO Q6HR PRN PRN Reason: Mild Pain Stop: 01/11/24 18:01 Hydrocodone Bitart/Acetaminophen (Hydrocodone/Apap 5-325mg 1 Each Tab) 1 each PO Q4HR PRN PRN Reason: Pain Stop: 01/11/24 16:27 Last Admin: 12/13/23 11:35 Dose: 1 each Atorvastatin Calcium (Atorvastatin 20 Mg Tab) 20 mg PO QAM [place] Stop: 01/12/24 09:01 Last Admin: 12/13/23 08:49 Dose: 20 mg Benzocaine/Menthol (Benzocaine/Menthol Lozeng 1 Each Lozenge) 1 each MUCOUS MEM Q4HR PRN PRN Reason: Sore Throat Stop: 01/11/24 16:27 Bisacodyl (Bisacodyl 10 Mg Supp) 10 mg RECTAL DAILY PRN PRN Reason: Constipation Stop: 01/11/24 16:28 Cyclobenzaprine HCl (Cyclobenzaprine 10 Mg Tab) 10 mg PO TID PRN PRN Reason: Muscle Spasm Stop: 01/11/24 16:28 Last Admin: 12/13/23 09:42 Dose: 10 mg Hydromorphone HCl (Hydromorphone 0.5 Mg/0.5 Ml Syringe) 0.5 mg IVP Q4HR PRN PRN Reason: Pain Stop: 01/11/24 16:27 Last Admin: 12/13/23 07:41 Dose: 0.5 mg Hydromorphone HCl (Hydromorphone 1 Mg/Ml 1 Ml Syringe) 1 mg IVP Q4HR PRN PRN Reason: Pain Stop: 01/11/24 16:27 Lactated Ringer's (Lactated Ringers) 1,000 mls @ 20 mls/hr IV .Q24H [facility] Stop: 01/11/24 06:50 Last Admin: 12/13/23 03:38 Dose: Not Given Sodium Chloride (Saline 0.9%) 1,000 mls @ 75 mls/hr IV .[id number] [facility] Stop: 01/11/24 16:31 Last Admin: 12/13/23 07:42 Dose: 75 mls/hr Lidocaine HCl (Lidocaine 1% (10mg/Ml) For Iv Start) 0.1 ml INTRADERMA PER PROTOCOL PRN PRN Reason: IV Start Stop: 01/11/24 06:50 Nicotine (Nicotine 21mg/24hr Patch) 1 patch TRANSDERM DAILY [facility] Last Admin: 12/13/23 08:51 Dose: Not Given Ondansetron HCl (Ondansetron 4 Mg/2 Ml Vial) 4 mg IVP Q8HR PRN PRN Reason: Nausea And Vomiting Stop: 01/11/24 16:28 Senna/Docusate Sodium (Sennosides-Docusate Sodium 1 Each Tab) 1 each PO DAILY [facility] Stop: 01/12/24 09:01 Last Admin: 12/13/23 08:49 Dose: 1 each Tramadol HCl (Tramadol 50 Mg Tab) 50 mg PO TID PRN PRN Reason: Pain Stop: 01/11/24 16:31 Past medical history to include: Osteoarthritis, hyperlipidemia, nicotine dependence Social history: . No alcohol. Smokes a pack a day for 44 years Physical examination: VITAL SIGNS: 98.4, 68, 16, 169/82, 97% room air GENERAL: Up in chair, uncomfortable EYES: Pupils equal. Conjunctiva normal. HEENT: External appearance of nose and ears normal, oral cavity grossly normal. Decreased hearing NECK: JVD not raised; masses not palpable. HEART: First and second heart sounds are normal; no edema. LUNGS: Respiratory rate normal; decreased breath sounds. ABDOMEN: Soft, nontender, liver spleen not palpable, no masses palpable. PSYCH: [Alert and oriented x3; mood and affect slightly anxiety MUSCULOSKELETAL:No Clubbing/cyanosis;muscles-grossly intact, evidence of OA. Dressing over incision site. Hemovac in place INVESTIGATIONS, reviewed in the clinical context: December 12: White count 9.5 hemoglobin 11.7 creatinine 265 potassium 4.2 creatinine 0.8 December 03, 2023: White count 8.9 hemoglobin 13.3 platelets 324 sodium 143 potassium 4.4 creatinine 0.7 EKG tracing personally reviewed by me-December 03, 2023: Normal sinus rhythm. Chest x-ray film personally reviewed by me-hyperinflation. Mild cardiomegaly. 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 Including laminectomy decompression, facetectomy, discectomy,. By Dr. Paul Coombs. Pain control -Acute postprocedure blood loss anemia expected from surgery IV Ferrlecit x 2. Oral iron -Primary osteoarthritis Pain control -Hyperlipidemia Lipitor -Chronic nicotine dependence, cigarette smoker Nicotine patch. -Emphysema secondary to smoking Albuterol as needed IV Ferrlecit. Change diet to chopped. Thank you Dr. Coombs Past Medical History Past Medical History: Hearing Disorder / Deafness, Hyperlipidemia Additional Past Medical History / Comment(s): left hip pain, arthritis hips, hands. back and shoulders. Tinnitis History of Any Multi-Drug Resistant Organisms: None Reported Past Surgical History: Appendectomy, Tonsillectomy Additional Past Surgical History / Comment(s): back surgery with a cage. rt carpal tunnel repair. Uterine ablation. Past Anesthesia/Blood Transfusion Reactions: No Reported Reaction Additional Past Anesthesia/Blood Transfusion Reaction / Comm: no blood transfusion hx Past Psychological History: No Psychological Hx Reported Smoking Status: Current every day smoker Past Alcohol Use History: None Reported Additional Past Alcohol Use History / Comment(s): 1 ppd since 18yrs old. Past Drug Use History: None Reported, Marijuana Additional Drug Use History / Comment(s): Smoke Marijuna "once and awahile." Instructed no Marijuana use 24 hours before procedure.
[2023-12-13] MEDS: SODIUM FERRIC GLUCONAT-SUCROSE 125 MG in SODIUM CHLORIDE 0.9% 100 ML IVPB SCH (15:30)
--- NOTE | 2023-12-13 16:27 | XR ---
EXAMINATION TYPE: XR lumbar spine 2 or 3V, [place] guidance operating room DATE OF EXAM: 12/12/2023 Comparison: None Clinical History: 62-year-old female L4-5 Fusion Findings: Imaging during fluoroscopy of L4-L5 lumbar fusion. Total fluoroscopy time 19 seconds. 4 images are pr ovided. [id number] CM2 Impression: Intraoperative fluoroscopy as above.
--- NOTE | 2023-12-14 08:45 | P.DS ---
Providers Date of admission: 12/13/23 08:16 Expected date of discharge: 12/14/23 Attending physician: Paul Coombs Consults: 12/12/23 16:27 Consult Physician Routine Consulting Provider: Kai Parra Consult Reason/Comments: Medical management Do you want consulting provider notified?: Yes Primary care physician: Stevan Alicia - Discharge Diagnosis(es) (1) Status post lumbar spinal fusion Current Visit: Yes Status: Acute (2) History of lumbar spinal fusion Current Visit: Yes Status: Acute (3) Spondylolisthesis at L4-L5 level Current Visit: Yes Status: Acute (4) Lumbar degenerative disc disease Current Visit: Yes Status: Acute (5) Radiculopathy with lower extremity symptoms Current Visit: Yes Status: Acute (6) Lumbar back pain with radiculopathy affecting left lower extremity Current Visit: Yes Status: Acute (7) Hyperlipidemia Current Visit: Yes Status: Acute Hospital Course: This is a pleasant 62-year-old female who presented with L4-5 spondylolisthesis, spinal stenosis, and adjacent level degenerative disc disease with history of previous decompression and fusion L5-S1 with fracture of hardware at S1 with retained hardware, and lower extremity radiculopathy who failed outpatient conservative therapy. She was admitted for an L4-5 open decompression and fusion with transforaminal lumbar interbody fusion and removal of hardware at L5-S1. The patient tolerated the procedure well and did well postoperatively. She has some initial difficulty with getting out of bed but then mobilizes well. She has a walker to aid in ambulation. She feels she is progressing well and would like to be discharged home today. She is not complaining of any lower extremity weakness or radiculopathy. She is happy with her progress. Condition on day of discharge stable. Patient will be discharged home. Patient was cleared preoperatively for surgery by Dr. Alicia. Patient currently denies any nausea, vomiting, fever, or chills. Patient is eating and voiding freely without difficulty. Patient may shower Optifoam dressing intact. Patient may remove Optifoam dressing in 3 days and shower without a dressing at that time. Patient should refrain from driving until at least after their first follow-up appointment in the office. Patient should avoid excessive bending, lifting, and twisting; no lifting greater than 10 pounds. MAPS has been reviewed today, 12/14/2023, with an Overall Overdose Risk Score of 230. An "Opiod Start Talking" Form has been signed and placed in the patient's chart. A prescription has been written for hydrocodone 5 mg / 325 mg, 1 tab, every 4 hours, as needed for acute pain, dispense #42. Prescriptions were also sent for cyclobenzaprine 10 mg, 1 tab, 3 times daily, as needed for muscle spasm, dispense #60 and Senokot-S, 1 tab, twice daily, as needed for constipation, dispense #60. Prescriptions are sent to the [facility] pharmacy located within [facility] per request of the patient. Patient's other medical diagnoses include hyperlipidemia. Patient should avoid tramadol while on hydrocodone. Patient should avoid anti- inflammatory medications over the next 6 weeks postoperatively. Physical Exam on day of discharge: Patient is awake, alert, and oriented 3 Vital signs stable Good chest excursion with deep inspiration and expiration Abdomen soft nontender No signs or symptoms of DVT; no calf pain Extensor hallucis longus, plantarflexion, and dorsiflexion positive sustained bilateral lower extremities Incision is clean, dry, and intact; no erythema, purulence, or signs of infection Optifoam dressings intact Procedures: L4-5 open decompression and fusion with transforaminal lumbar interbody fusion and removal of hardware at L5-S1 Patient Condition at Discharge: Stable Plan - Discharge Summary Discharge Rx Participant: No New Discharge Prescriptions: New HYDROcodone/APAP 5-325MG [Malabar 5] 1 each PO Q4HR PRN #42 tab PRN Reason: Pain Sennosides-Docusate Sodium [Senokot-S] 1 tab PO BID PRN #60 tablet PRN Reason: Constipation Cyclobenzaprine [Flexeril] 10 mg PO TID PRN #60 tab PRN Reason: Muscle Spasm No Action Atorvastatin [Lipitor] 20 mg PO QAM traMADol HCL 50 mg PO TID PRN PRN Reason: Pain Ibuprophen (Unknown Dose) 1 dose PO Q8H PRN PRN Reason: Pain Discharge Medication List Atorvastatin [Lipitor] 20 mg PO QAM 05/22/22 [History] Ibuprophen (Unknown Dose) 1 dose PO Q8H PRN 12/07/23 [History] traMADol HCL 50 mg PO TID PRN 12/07/23 [History] Cyclobenzaprine [Flexeril] 10 mg PO TID PRN #60 tab 12/14/23 [Rx] HYDROcodone/APAP 5-325MG [Malabar 5] 1 each PO Q4HR PRN #42 tab 12/14/23 [Rx] Sennosides-Docusate Sodium [Senokot-S] 1 tab PO BID PRN #60 tablet 12/14/23 [Rx] Follow up Appointment(s)/Referral(s): Cj Godfrey, MICHELLE [PHYSICIAN [facility]] - 2 Weeks (Patient may follow-up with Cj Godfrey PA-C or Dr. Rodney Coombs at [facility] in 2-3 weeks following discharge. ) Activity/Diet/Wound Care/Special Instructions: 1. Patient may shower with Optifoam dressing intact. 2. Patient may remove Optifoam dressing in 3 days and shower without a dressing at that time. 3. Patient should refrain from driving until at least after their first follow- up appointment in the office. 4. Patient should avoid excessive bending, twisting, lifting; avoid overhead lifting; no lifting greater than 10 pounds 5. Take medications as prescribed 6. Patient may utilize walker to aid in ambulation as needed 7. Patient should avoid anti-inflammatory medications over the next 6 weeks postoperatively 8. Do not soak in tub Discharge Disposition: HOME SELF-CARE
[2023-12-14 14:14] VITALS: BP 154/75; PULSE 78; RESP 18; TEMP 97.7
--- NOTE | 2023-12-14 21:30 | P.PN ---
Progress Note - Text Progress Note Date: 12/14/23 - Chief Complaint Lumbar surgery - History of Present Illness This is a pleasant 62-year-old patient of Dr. Alicia. Chronic stable medical conditions include osteoarthritis, hyperlipidemia, nicotine dependence. Patient has had longstanding lower back problems. Now radiating down to the left leg. With some numbness. At baseline patient does walk with a limp. Patient underwent lumbar surgery by Dr. Coombs. Postprocedure laying in bed. S ome pain present. Chronic stable medical conditions include hard of hearing, tinnitus, hyperlipidemia. Patient does have chronic congestion from allergies. Smoker. December 12: Pain present at operative site. Has a Hemovac in place. Poor appetite. Up in chair. Aldana catheter was discontinued. December 13: Hemovac discontinued. Feeling better. Pain better controlled. Did ambulate. Discussed. Past medical history to include: Osteoarthritis, hyperlipidemia, nicotine dependence Social history: . No alcohol. Smokes a pack a day for 44 years Physical examination: VITAL SIGNS: 97.7, 78, 18, 154/75, 96% room air GENERAL: Up in chair, comfortable EYES: Pupils equal. Conjunctiva normal. HEENT: External appearance of nose and ears normal, oral cavity grossly normal. Decreased hearing NECK: JVD not raised; masses not palpable. HEART: First and second heart sounds are normal; no edema. LUNGS: Respiratory rate normal; decreased breath sounds. ABDOMEN: Soft, nontender, liver spleen not palpable, no masses palpable. PSYCH: [Alert and oriented x3; mood and affect slightly anxiety MUSCULOSKELETAL:No Clubbing/cyanosis;muscles-grossly intact, evidence of OA. Dressing over incision site. Hemovac continued INVESTIGATIONS, reviewed in the clinical context: December 12: White count 9.5 hemoglobin 11.7 creatinine 265 potassium 4.2 creatinine 0.8 December 03, 2023: White count 8.9 hemoglobin 13.3 platelets 324 sodium 143 potassium 4.4 creatinine 0.7 EKG tracing personally reviewed by me-December 03, 2023: Normal sinus rhythm. Chest x-ray film personally reviewed by me-hyperinflation. Mild cardiomegaly. 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 Including laminectomy decompression, facetectomy, discectomy,. By Dr. Paul Coombs. Pain control -Acute postprocedure blood loss anemia expected from surgery IV Ferrlecit x 2. Oral iron -Primary osteoarthritis Pain control -Hyperlipidemia Lipitor -Chronic nicotine dependence, cigarette smoker Nicotine patch. -Emphysema secondary to smoking Albuterol as needed discussed with patient. Questions answered. Thank you Dr. Coombs Past Medical History Past Medical History: Hearing Disorder / Deafness, Hyperlipidemia Additional Past Medical History / Comment(s): left hip pain, arthritis hips, hands. back and shoulders. Tinnitis History of Any Multi-Drug Resistant Organisms: None Reported Past Surgical History: Appendectomy, Tonsillectomy Additional Past Surgical History / Comment(s): back surgery with a cage. rt carpal tunnel repair. Uterine ablation. Past Anesthesia/Blood Transfusion Reactions: No Reported Reaction Additional Past Anesthesia/Blood Transfusion Reaction / Comm: no blood transfusion hx Past Psychological History: No Psychological Hx Reported Smoking Status: Current every day smoker Past Alcohol Use History: None Reported Additional Past Alcohol Use History / Comment(s): 1 ppd since 18yrs old. Past Drug Use History: None Reported, Marijuana Additional Drug Use History / Comment(s): Smoke Marijuna "once and awahile." Instructed no Marijuana use 24 hours before procedure. Additional CC's: Stevan Alicia
== END 2023-12-14 14:24 | disposition home or self-care (01) ==
LOC: OR 10:05 → 4SSUR 16:22 → OR 12-13 08:16 → 4SSUR 12-13 08:16
PROVIDERS: ADMIT Orthopaedic Surgery Orthopaedic Surgery of the Spine; ATTEND Orthopaedic Surgery Orthopaedic Surgery of the Spine
DX: T84.216A Breakdown (mechanical) of internal fixation device of vertebrae, initial encounter (principal); Y75.3 Surgical instruments, materials and neurological devices (including sutures) associated with adverse incidents; Y83.8 Other surgical procedures as the cause of abnormal reaction of the patient, or of later complication, without mention of misadventure at the time of the procedure; M43.16 Spondylolisthesis, lumbar region; M48.061 Spinal stenosis, lumbar region without neurogenic claudication; M51.16 Intervertebral disc disorders with radiculopathy, lumbar region; R11.0 Nausea; D62 Acute posthemorrhagic anemia; E78.5 Hyperlipidemia, unspecified; M19.91 Primary osteoarthritis, unspecified site; J43.9 Emphysema, unspecified; F17.210 Nicotine dependence, cigarettes, uncomplicated; Z79.899 Other long term (current) drug therapy
CPT/HCPCS: 96376; 96361; 96365; 96366 ×2; 96367; 96375; 97530; 97162; 86891; 80048; 85025; 72100; 22630; 22853; 22840; 20936; G0378 ×2; C1713; S4990; J2001; J0690 ×3; J2405; J2916 ×2; J1170 ×2; J0665